=== PATIENT | male | born 1990 | race Hispanic/Latino ===

== ENCOUNTER 2019-10-10 19:04 | Emergency (ER) | payer BC, OTHER ==
[2019-10-10] MEDS ORDERED: IBUPROFEN 200 MG TAB PO ONE (19:30)
[2019-10-10] MEDS ORDERED: IBUPROFEN 400 MG TAB ONE (19:30)
--- NOTE | 2019-10-10 20:34 | ER ---
Nurse's Notes [facility] Name: Asif Webster Jr Age: 29 yrs Sex: Male : 1990 Arrival Date: 10/10/2019 Time: 19:16 Bed 23 Private MD: Diagnosis: Influenza due to other identified influenza virus Presentation: 10/10 19:18 Presenting complaint: Patient states: Yesterday I was at the doctor and I was tested ca1 for the Flu. They prescribed with Tamiflu. But I feel like it is making it worse. I am having a bad headaches and migraines that it hurts to move my head. Reports N/V. Acetaminophen taken at around 11am today. Transition of care: patient was not received from another setting of care. Onset of symptoms was October 10, 2019. Risk Assessment: Do you want to hurt yourself or someone else? Patient reports no desire to harm self or others. Initial Sepsis Screen: Does the patient meet any 2 criteria? No. Patient's initial sepsis screen is negative. Does the patient have a suspected source of infection? No. Patient's initial sepsis screen is negative. Care prior to arrival: None. 19:18 Method Of Arrival: Ambulatory ca1 19:18 Acuity: MARK 3 ca1 19:18 Acuity: MARK 3 ca1 Historical: - Allergies: 19:25 No Known Allergies; ca1 - Home Meds: 19:25 Tamiflu 45 mg Oral cap 75 mg daily [Active]; benzonatate 200 mg oral cap 1 cap 3 times ca1 per day [Active]; Guaifenesin - Codeine Syrup 1 teaspoon every 6 hours [Active]; - PMHx: 19:25 Kidney stones; ca1 - PSHx: 19:25 Hernia repair; ca1 - Immunization history:: Adult Immunizations not up to date, Flu vaccine is not up to date. - Social history:: Smoking status: Patient uses tobacco products, denies chronic smoking, but will smoke occasionally. - Ebola Screening: : Patient negative for fever greater than or equal to 101.5 degrees Fahrenheit, and additional compatible Ebola Virus Disease symptoms Patient denies exposure to infectious person Patient denies travel to an Ebola-affected area in the 21 days before illness onset No symptoms or risks identified at this time. Screenin:02 Abuse screen: Denies threats or abuse. Denies injuries from another. Nutritional mg2 screening: No deficits noted. Tuberculosis screening: No symptoms or risk factors identified. Fall Risk None identified. Assessment: 21:00 General: Appears in no apparent distress. comfortable, Behavior is calm, cooperative. mg2 Pain: Complains of pain in head. Neuro: Level of Consciousness is awake, alert, obeys commands, Oriented to person, place, time, situation. Cardiovascular: Capillary refill < 3 seconds Patient's skin is warm and dry. Respiratory: Airway is patent Respiratory effort is even, unlabored, Respiratory pattern is regular, symmetrical. GI: No deficits noted. GI: Reports nausea, vomiting. : No signs and/or symptoms were reported regarding the genitourinary system. EENT: No signs and/or symptoms were reported regarding the EENT system. Derm: Skin is intact, is healthy with good turgor, Skin is pink, warm \T\ dry. normal. Musculoskeletal: Circulation, motion, and sensation intact. Capillary refill < 3 seconds. Vital Signs: 19:25 BP 131 / 83; Pulse 94; Resp 17 S; Temp 100.7(O); Pulse Ox 99% on R/A; Weight 74.84 kg ca1 (R); Height 5 ft. 4 in. (162.56 cm) (R); Pain 9/10; 20:30 BP 125 / 78; Pulse 90; Resp 18; Pulse Ox 100% on R/A; mg2 19:25 Body Mass Index 28.32 (74.84 kg, 162.56 cm) ca1 ED Course: 19:16 Patient arrived in ED. ag3 19:20 Fred[facility] Brand[facility]C [facility] la1 19:20 Jorge Nguyen MD is Attending Physician. la1 19:22 Triage completed. ca1 19:25 Arm band placed on right wrist. ca1 20:22 Miko Martinez RN is Primary Nurse. mg2 21:02 Patient has correct armband on for positive identification. mg2 21:02 No provider procedures requiring assistance completed. Patient did not have IV access mg2 during this emergency room visit. Administered Medications: 19:28 Drug: Ibuprofen 600 mg Route: PO; ca1 20:59 Follow up: Response: No adverse reaction; Medication administered at discharge. mg2 20:59 Drug: Decadron 10 mg Route: PO; mg2 20:59 Follow up: Response: No adverse reaction; Medication administered at discharge. mg2 20:59 Drug: Zofran 4 mg Route: PO; mg2 20:59 Follow up: Response: No adverse reaction; Medication administered at discharge. mg2 Outcome: 20:33 Discharge ordered by MD. davila 21:03 Discharged to home ambulatory, with family. mg2 21:03 Condition: stable 21:03 Discharge instructions given to patient, family, Instructed on discharge instructions, follow up and referral plans. medication usage, Demonstrated understanding of instructions, follow-up care, medications, Prescriptions given X 1. 21:04 Patient left the ED. mg2 Signatures: Freddy Brandt, PALEOLOGIST-C PALEOLOGIST-Cla1 Miko Martinez, RN RN mg2 Jes Apodaca3 Gala Rousseau RN RN ca1
--- NOTE | 2019-10-10 20:34 | EDPHYS ---
Physician Documentation [facility] Name: Asif Webster Jr Age: 29 yrs Sex: Male : 1990 Arrival Date: 10/10/2019 Time: 19:16 Bed 23 Private MD: ED Physician Jorge Nguyen HPI: 10/10 20:30 This 29 yrs old Male presents to ER via Ambulatory with complaints of Flu la1 Symptoms. 20:30 Onset: The symptoms/episode began/occurred 2 day(s) ago. Associated signs and symptoms: la1 Pertinent positives: cough, fever, headache. Modifying factors: The patient symptoms are alleviated by acetaminophen, the patient symptoms are aggravated by nothing. The patient has been recently seen by a physician:. pt dx with the flu recently, started tamiflu yesterday morning. States still feeling bad, running fever, HOFF. Historical: - Allergies: 19:25 No Known Allergies; ca1 - Home Meds: 19:25 Tamiflu 45 mg Oral cap 75 mg daily [Active]; benzonatate 200 mg oral cap 1 cap 3 times ca1 per day [Active]; Guaifenesin - Codeine Syrup 1 teaspoon every 6 hours [Active]; - PMHx: 19:25 Kidney stones; ca1 - PSHx: 19:25 Hernia repair; ca1 - Immunization history:: Adult Immunizations not up to date, Flu vaccine is not up to date. - Social history:: Smoking status: Patient uses tobacco products, denies chronic smoking, but will smoke occasionally. - Ebola Screening: : Patient negative for fever greater than or equal to 101.5 degrees Fahrenheit, and additional compatible Ebola Virus Disease symptoms Patient denies exposure to infectious person Patient denies travel to an Ebola-affected area in the 21 days before illness onset No symptoms or risks identified at this time. ROS: 20:31 Constitutional: + fever/chills Eyes: Negative for injury, pain, redness, and discharge, la1 ENT: Negative for injury, pain, and discharge, Neck: Negative for injury, pain, and swelling, Cardiovascular: Negative for chest pain, palpitations, and edema. 20:31 Back: Negative for injury and pain, MS/Extremity: Negative for injury and deformity, Skin: Negative for injury, rash, and discoloration. 20:31 Respiratory: Positive for cough. 20:31 Abdomen/GI: Positive for nausea and vomiting. Exam: 20:31 Constitutional: This is a well developed, well nourished patient who is awake, alert, la1 and in no acute distress. Head/Face: Normocephalic, atraumatic. Eyes: Pupils equal round and reactive to light, extra-ocular motions intact. Lids and lashes normal. Conjunctiva and sclera are non-icteric and not injected. Cornea within normal limits. Periorbital areas with no swelling, redness, or edema. ENT: Nares patent. No nasal discharge, no septal abnormalities noted. Tympanic membranes are normal and external auditory canals are clear. Oropharynx with no redness, swelling, or masses, exudates, or evidence of obstruction, uvula midline. Mucous membranes moist. Neck: Trachea midline, no thyromegaly or masses palpated, and no cervical lymphadenopathy. Supple, full range of motion without nuchal rigidity, or vertebral point tenderness. No Meningismus. Chest/axilla: Normal chest wall appearance and motion. Nontender with no deformity. No lesions are appreciated. Cardiovascular: Regular rate and rhythm with a normal S1 and S2. No gallops, murmurs, or rubs. Normal PMI, no JVD. No pulse deficits. Respiratory: Lungs have equal breath sounds bilaterally, clear to auscultation No rales, rhonchi or wheezes noted. No increased work of breathing, no retractions or nasal flaring. MS/ Extremity: Pulses equal, no cyanosis. Neurovascular intact. Full, normal range of motion. Vital Signs: 19:25 BP 131 / 83; Pulse 94; Resp 17 S; Temp 100.7(O); Pulse Ox 99% on R/A; Weight 74.84 kg ca1 (R); Height 5 ft. 4 in. (162.56 cm) (R); Pain 9/10; 20:30 BP 125 / 78; Pulse 90; Resp 18; Pulse Ox 100% on R/A; mg2 19:25 Body Mass Index 28.32 (74.84 kg, 162.56 cm) ca1 MDM: 20:10 Patient medically screened. la1 20:32 Data reviewed: vital signs, nurses notes, I have discussed the patient's la1 presentation/case with the attending Emergency Department Physician; and as a result, I will discharge patient. Data interpreted: Pulse oximetry: on room air is 99 %. Interpretation: normal. Counseling: I had a detailed discussion with the patient and/or guardian regarding: the historical points, exam findings, and any diagnostic results supporting the discharge/admit diagnosis, the need for outpatient follow up, a family practitioner, to return to the emergency department if symptoms worsen or persist or if there are any questions or concerns that arise at home. ED course: discussed that pt should be taking ibuprofen and tylenol at home for fever, pt is tolerating PO but with occasional vomiting. Discussed that he could stop taking the tamfilu if he prefers. . Administered Medications: 19:28 Drug: Ibuprofen 600 mg Route: PO; ca1 20:59 Follow up: Response: No adverse reaction; Medication administered at discharge. mg2 20:59 Drug: Decadron 10 mg Route: PO; mg2 20:59 Follow up: Response: No adverse reaction; Medication administered at discharge. mg2 20:59 Drug: Zofran 4 mg Route: PO; mg2 20:59 Follow up: Response: No adverse reaction; Medication administered at discharge. mg2 Disposition: 10/11 06:24 Co-signature as Attending Physician, Jorge Nguyen MD I agree with the assessment and tw4 plan of care. Disposition: 10/10/19 20:33 Discharged to Home. Impression: Influenza due to other identified influenza virus. - Condition is Stable. - Discharge Instructions: Fever, Adult, Influenza, Adult, Nausea and Vomiting, Adult. - Prescriptions for Zofran 4 mg Oral Tablet - take 1 tablet by ORAL route every 12 hours As needed; 20 tablet. - Work release form, Medication Reconciliation Form, Thank You Letter form. - Follow up: Private Physician; When: 2 - 3 days; Reason: Recheck today's complaints, Re-evaluation by your physician. - Problem is new. - Symptoms have improved. Signatures: Freddy Brandt, AMBULANCE OPERATIONS SUPERVISOR-C AMBULANCE OPERATIONS SUPERVISOR-Cla1 Jorge Nguyen MD MD tw4 Miko Martinez RN RN mg2 Gala Rousseau RN RN ca1 Corrections: (The following items were deleted from the chart) 10/10 21:04 20:33 10/10/2019 20:33 Discharged to Home. Impression: Influenza due to other mg2 identified influenza virus. Condition is Stable. Forms are Medication Reconciliation Form, Thank You Letter, Antibiotic Education, Prescription Opioid Use. Follow up: Private Physician; When: 2 - 3 days; Reason: Recheck today's complaints, Re-evaluation by your physician. Problem is new. Symptoms have improved. la1
[2019-10-10] MEDS ORDERED: dexAMETHasone 4 MG TAB ONE (20:49)
[2019-10-10] MEDS ORDERED: ONDANSETRON 4 MG (ODT) TAB ONE (20:49)
[2019-10-10 23:48] VITALS: TEMP 100.7
[2019-10-10 23:50] VITALS: BP 125/78; O2SAT 100
== END 2019-10-10 21:04 | disposition home or self-care (01) ==
LOC: ER 19:04
DX: J10.1 Influenza due to other identified influenza virus with other respiratory manifestations (principal); Z72.0 Tobacco use
CPT/HCPCS: 99283; J8540

== ENCOUNTER 2023-08-26 04:46 | Emergency (ER) | payer BC, SELFPAY ==
--- OUTSIDE RECORDS SUMMARY | 2023-08-26 04:50 | XMS REPORT | Continuity of Care Document ---
:1990 Author Organization [facility] t Address [address] [place] [address] Care Team Providers Name Role Phone PCP, PATIENT DOES NOT HAVE A Primary Care Physician Unavaila ble THOR HILL Attending Clinician Unavailable Thor Moscoso Attending Clinician THOR HILL Admitting Clinician Unavailable Payers Payer Name Policy Type Policy Number Effective Date [facility] Date [id number] 2021 00:00:00 Problems Condition Condition Condition Status Onset Resolution Last Treating Co mments Source Name Details Category Date Date Treatment Clinician Date No known No known Disease Unive rs active active ity of problems problems [facility] Allergies, Adverse Reactions, Alerts Allergy Allergy Status Severity Reaction(s) Onset Inactive Treating Comm ents Source Name Type Date Date Clinician NO KNOWN Drug Active [facility] ALLERGIE Class ity of S [facility] Social History Social Habit Start Date Stop Date Quantity Comments Source Exposure to 2022-06-28 2022-07-08 Not sure [facility] SARS-CoV-2 (event) 00:00:00 18:59:00 Medica l Branch Sex Assigned At [birth year] [facility] 00:00:00 00:00:00 Medical Branch Smoking Status Start Date Stop Date Source Tobacco smoking consumption [facility] Medical unknown Branch Medications Ordered Filled Start Stop Current Ordering Indication Dosage Frequency Signature Comments Components Source Medication Medication Date Date Medication? Clinician (SIG) Name Name ibuprofen 2021- No 800mg 800 mg, Uni vers (IBU) 07-09 Oral, ity of tablet 800 00:15: 00:23 ONCE, 1 [place] as mg 00 :00 dose, On Medical [facility] 07/08/22 at 1915, ROHIT ibuprofen Yes [id number] 600mg Take 1 U nivers 600 mg 9-15 tablet by ity of tablet 00:00: mouth [place] 00 every 6 Medical (six) Branch hours as needed for Pain (scale 4-6). methocarbam 2021- No [id number] 500mg Take 1 Univers oL 500 mg 07-08 tablet by ity of tablet 00:00: 04:59 mouth 4 [place] 00 :00 (four) Medical times Branch daily for 7 days. TAMSULOSIN Yes .4mg Take 1 Unive rs 0.4 mg 24 2-08 capsule by ity of hr capsule 00:00: mouth at [place] as 00 bedtime. Medical Branch CIPROFLOXAC Yes 500mg Take 1 Uni vers IN HCL 500 2-08 tablet by ity of mg tablet 00:00: mouth [place] 00 every 12 Medical (twelve) Branch hours. TYLENOL-COD Yes 2{tbl} Take 2 Un rupesh EINE #3 2-08 tablets by ity of 300-30 mg 00:00: mouth [place] tablet 00 every 4 Medical (four) Branch hours as needed for Pain (scale 1-3). proMETHazin Yes 25mg Take 1 Univ ers e 25 mg 1-10 tablet by ity of tablet 00:00: mouth [place] 00 every 6 Medical (six) Branch hours as needed for Nausea and Vomiting (N/V). tamsulosin 2016-0 Yes .4mg Take 1 Unive rs 0.4 mg 24 1-10 capsule by ity of hr capsule 00:00: mouth at [place] as 00 bedtime. Medical Branch ciprofloxac 0 Yes 500mg Take 1 Uni vers in HCl 500 1-10 tablet by ity of mg tablet 00:00: mouth 2 [place] 00 (two) Medical times Branch daily. Vital Signs Vital Name Observation Time Observation Value Comments Source Systolic blood 2022-07-09 01:16:34 141 mm[Hg] Univer sity of pressure [place] [facility] Diastolic blood 2022-07-09 01:16:34 78 mm[Hg] Unive rsity of pressure [facility] Heart rate 2022-07-09 01:16:34 72 /min [facility] Respiratory rate 2022-07-09 01:16:34 20 /min [facility] Oxygen saturation in 2022-07-09 01:16:34 99 /min [facility] Arterial blood by [facility] Pulse oximetry Branch Body temperature 2022-07-09 00:00:00 37.33 Lisseth [facility] Body height 2022-07-09 00:00:00 162.6 cm [facility] Body weight 2022-07-09 00:00:00 74.844 kg [facility] BMI 2022-07-09 00:00:00 28.32 kg/m2 [facility] Procedures Procedure Date / Time Performed Performing Clinician Sourc e XR CERVICAL SPINE 2 2022-07-09 00:37:27 Thor Hill [facility] XR RIBS 3 VW LEFT 2022-07-09 00:37:27 Thor Hill [facility] NOTICE OF PRIVACY 2022-07-08 23:37:38 Doctor Unassigned, No [facility] PR[facility] Name [facility] Branch CONSENT/REFUSAL FOR 2022-07-08 23:35:11 [facility] Branch TREATMENT Encounters Start End Encounter Admission Attending Care Care Encounter Source Date/Time Date/Time Type Type Clinicians Facility Department ID 2022-07-08 2022-07-08 Emergency X DANI PRFRANNIE ERT [id number] [facility] 19:02:00 20:33:00 THOR gonzales [facility] 2022-07-08 2022-07-08 Emergency Dani PRFRANNIE [id number] [facility] 19:02:00 20:33:00 Thor LILLY [id number] itfang ferrara [place] [id number] [facility] [id number] [facility] 084 Branch Results This patient has no known results.
[2023-08-26 05:10] LABS: Absolute Lymphocytes (CBC) 1.2 K/uL (0.7-4.9); Hematocrit 50.1 % (39.6-49.0); Lymphocytes % 6.6 % (15.3-44.8); MCV 94.6 fL (80-100); MPV 8.8 fL (7.6-11.3); Platelets 218 thou/uL (152-406)
[2023-08-26] MEDS ORDERED: KETOROLAC 30 MG/ML INJ ONE (05:10)
[2023-08-26] MEDS ORDERED: NA CHLORIDE 0.9% 1,000 ML ONE (05:10)
[2023-08-26 06:56] LABS: Potassium 4.3 mEq/L (3.5-5.1)
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
[2023-08-26 08:37] VITALS: BP 147/98; TEMP 99.2; O2SAT 97
--- NOTE | 2023-08-26 16:38 | RAD REPORT ---
EXAM DESCRIPTION: RAD - Shoulder Left 2 View - 08/26/2023 5:19 am HISTORY: Pain COMPARISON: None. TECHNIQUE: Left Shoulder 2 Views FINDINGS: No fracture or glenohumeral joint dislocation. No significant sclerotic/lytic bone lesion. Left clavicle distal/lateral aspect appears superiorly displaced in relation to scapular acromion by about 1 cm. Soft tissues unremarkable. IMPRESSION: Left acromioclavicular joint injury. Electronically signed by: Jamal River MD 08/26/2023 5:49 AM CDT Due to temporary technical issues with the PACS/Fluency reporting system, reports are being signed by the in house radiologists without review as a courtesy to insure prompt reporting. The interpreting radiologist is fully responsible for the content of the report.
--- NOTE | 2023-08-26 16:45 | RAD REPORT ---
EXAM DESCRIPTION: CT - Head C Spine Cap Ki Alaniz - 08/26/2023 7:04 am CLINICAL HISTORY: The patient is 33 years old and is Male; TRAUMA TECHNIQUE: Axial computed tomography images of the head/brain and cervical spine without intravenous contrast. Sagittal and coronal reformatted images were created and reviewed. This CT exam was pe rformed using one or more of the following dose reduction techniques: automated exposure control, a djustment of the mA and/or kV according to patient size, and/or use of iterative reconstruction techn ique. COMPARISON: No relevant prior studies available. FINDINGS: Brain: Unremarkable. No hemorrhage. No significant white matter disease. No edema. Ventricles: Unremarkable. No ventriculomegaly. Skull: No acute fracture. Sinuses: Unremarkable as visualized. No acute sinusitis. Mastoid air cells: Unremarkable as visualized. No mastoid fluid. Vertebrae: No acute cervical spine fracture visualized. Lateral alignment is maintained. Discs/spinal canal/neural foramina: No acute findings. No spinal canal stenosis. Soft tissues: Unremarkable. Pleural space: No apical pneumothorax. * A single impression for all exams can be found at the end of this report EXAM DESCRIPTION: CT Chest, Abdomen and Pelvis With Intravenous Contrast CLINICAL HISTORY: The patient is 33 years old and is Male; TRAUMA TECHNIQUE: Axial computed tomography images of the chest, abdomen and pelvis with intravenous contra st. Sagittal and coronal reformatted images were created and reviewed. This CT exam was performed using one or more of the following dose reduction techniques: automated exposure control, adjustme nt of the mA and/or kV according to patient size, and/or use of iterative reconstruction technique. COMPARISON: No relevant prior studies available. FINDINGS: CHEST: Lungs: Unremarkable. No mass. No consolidation. Pleural space: No pleural effusion or pneumothorax. Heart: Mild cardiac enlargement. No significant pericardial effusion. No significant coronary artery calcifications. Mediastinum: No pneumomediastinum. ABDOMEN: Liver: No hepatic injury visualized. Gallbladder and bile ducts: Unremarkable. No calcified stones. No ductal dilation. Pancreas: No findings to suggest acute pancreatitis. No mass visualized. No ductal dilation. Spleen: Unremarkable. No splenomegaly. Adrenals: Unremarkable. No mass. Kidneys and ureters: Unremarkable. No hydronephrosis. No solid mass. Stomach and bowel: Colonic diverticulosis. No bowel dilatation or obstruction. No bowel wall thickening. PELVIS: Appendix: The visualized appendix is normal. No pericecal inflammation to suggest acute appendici tis. Bladder: Unremarkable. No mass. Reproductive: Unremarkable as visualized. CHEST, ABDOMEN and PELVIS: Intraperitoneal space: Unremarkable. No significant fluid collection. No free air. Bones/joints: No acute sternal fracture. No sternoclavicular joint dislocation. No acute rib fracture visualized. No acute fracture or dislocation shoulders. No thoracic compression fracture. No acute fracture in the pelvis or proximal femora. No hip dislocation. No acute lumbar spine fracture. Soft tissues: Left infraclavicular soft tissue swelling. No active bleeding visualized. Vasculature: Unremarkable. No aortic aneurysm. Lymph nodes: Unremarkable. No enlarged lymph nodes. * A single impression for all exams can be found at the end of this report IMPRESSION: CT Head and Cervical Spine Without Intravenous Contrast: 1. No intracranial hemorrhage. No acute skull fracture. 2. No acute cervical spine fracture visualized. CT Chest, Abdomen and Pelvis With Intravenous Contrast: 1. Left infraclavicular soft tissue swelling. No active bleeding visualized. 2. No acute intra-abdominal or intrathoracic injury identified. 3. Colonic diverticulosis. Electronically signed by: Huong Mejias MD 08/26/2023 6:52 AM CDT Due to temporary technical issues with the PACS/Fluency reporting system, reports are being signed by the in house radiologists without review as a courtesy to insure prompt reporting. The interpreting radiologist is fully responsible for the content of the report.
== END 2023-08-26 08:14 | disposition home or self-care (01) ==
LOC: ER 04:46
DX: S43.122A Dislocation of left acromioclavicular joint, 100%-200% displacement, initial encounter (principal); S43.52XA Sprain of left acromioclavicular joint, initial encounter; D72.829 Elevated white blood cell count, unspecified; V23.49XA Other motorcycle driver injured in collision with car, pick-up truck or van in traffic accident, initial encounter; Y93.89 Activity, other specified; Y92.410 Unspecified street and highway as the place of occurrence of the external cause
CPT/HCPCS: 36415; 70450; 71260; 72125; 74177; 80048; 85025; 86850; 86900; 86901; 96374; 99284; J7030; Q9967